=== PATIENT | female | born 1940 | race Caucasian/White ===

== ENCOUNTER 2016-10-21 12:57 | Inpatient (IN) | payer OTHER ==
[~2016-10-21 12:57] MED LIST: cefOXitin SODIUM 1 GM in D5W 50 ML IV ONE
[2016-10-21] MEDS ORDERED: MIDAZOLAM 2 MG/2 ML VIAL ONE (14:13)
[2016-10-21] MEDS ORDERED: LR 1,000 ML IV ONE (14:23)
[2016-10-21] MEDS ORDERED: fentaNYL 100 MCG/2 ML INJ ONE ×3 (14:23→19:09)
[2016-10-21] MEDS ORDERED: LIDOCAINE 1% 5 ML SDV ID PRN (14:23)
[2016-10-21] MEDS ORDERED: PROPOFOL 200 MG/20 ML VIAL ONE ×2 (14:24)
[2016-10-21] MEDS ORDERED: ROCURONIUM 50 MG/5 ML VIAL ONE ×2 (14:27→16:16)
[2016-10-21] MEDS ORDERED: LIDOCAINE 2% 100 MG/5 ML SYR IVP ONE (14:27)
[2016-10-21] MEDS ORDERED: SKIN ADHESIVE (DERMABOND) 1 EACH TP ONE (14:44)
[2016-10-21] MEDS ORDERED: BUPIVACAINE 0.5% 30 ML SDV ONE (14:45)
[2016-10-21] MEDS ORDERED: PHENYLEPHRINE HCL 100 MCG/ML SYR ONE ×2 (16:16)
[2016-10-21] MEDS ORDERED: ONDANSETRON 4 MG/2 ML VIAL ONE (16:21)
[2016-10-21] MEDS ORDERED: DEXAMETHASONE 4 MG/ML VIAL ONE (16:21)
[2016-10-21] MEDS ORDERED: ALBUMIN 5% 250 ML BOTTLE IV ONE (17:24)
[2016-10-21] MEDS ORDERED: THROMBIN (RECOMBINANT) 5,000 UNIT VIAL TP ONE (17:39)
[2016-10-21] MEDS ORDERED: ONDANSETRON 4 MG/2 ML VIAL IVP PRN (19:21)
[2016-10-21] MEDS ORDERED: NALOXONE HCL 0.4 MG/ML INJ IVP PRN (19:21)
[2016-10-21] MEDS ORDERED: ACETAMINOPHEN 325 MG TAB PO PRN (19:21)
[2016-10-21] MEDS ORDERED: HYDROmorphONE/DILAUDID 6 MG/30 ML PCA IV PRN (19:21)
--- NOTE | 2016-10-21 19:27 | POSTOPPROG ---
Post Op Note Date of Operation: 10/21/16 Surgeon: Alysia Ahn Wash Barrel Leader: diana Anesthesiologist: mady Anesthesia: GET(General Endotracheal) Pre-op Diagnosis: sigmoid colon cancer Post-op Diagnosis: same Indication: 76 yo with sigmoid colon cancer Procedure: lap aracelis, lap lar with splenic flexure takedown, loop ileostomy Findings: large tumor adhered to uterus Inf/Abcess present in the surg proc area at time of surgery?: No EBL: 100-500
[2016-10-21] MEDS: ALLOPURINOL 100 MG TAB PO SCH (20:16)
[2016-10-21] MEDS: FUROSEMIDE 20 MG TAB PO SCH (20:16)
[2016-10-21] MEDS: ATORVASTATIN CALCIUM 10 MG TAB PO SCH (20:16)
[2016-10-21] MEDS: NS 1,000 ML IV SCH (21:03)
[2016-10-21] MEDS: cefOXitin SODIUM 1 GM in D5W 50 ML IV SCH (21:03)
[2016-10-22] MEDS: FUROSEMIDE 20 MG TAB PO SCH ×3 (01:28→20:53)
[2016-10-22] MEDS: cefOXitin SODIUM 1 GM in D5W 50 ML IV SCH ×2 (03:24→10:03)
[2016-10-22 05:26] LABS: % IMMATURE GRANULYOCYTES 0.6 % (0.0-1.1); ABSOLUTE IMMATURE GRANULOCYTES 0.07 10^3/uL (0.00-0.10); ADD DIFF? NO; ADD MORPH? YES; ADD SCAN? NO; ATYPICAL LYMPHOCYTE FLAG 0 (0-99); FRAGMENT RBC FLAG 40 (0-99); HEMATOCRIT 27.1 % (38.0-47.0); HEMOGLOBIN 8.3 g/dL (12.6-16.3); LEFT SHIFT FLG 0 (0-99); LIPEMIA HEMOLYSIS FLAG 80 (0-99); MEAN CELL HEMOGLOBIN 25.3 pg (27.9-34.1); MEAN CELL HEMOGLOBIN CONCENTR. 30.6 g/dL (32.4-36.7); MEAN CELL VOLUME 82.6 fL (81.5-99.8); MEAN PLATELET VOLUME 10.2 fL (8.7-11.7); PLATELET CLUMPS FLAG 0 (0-99); PLATELET COUNT 174 10^3/uL (150-400); RED BLOOD CELL COUNT 3.28 10^6/uL (4.18-5.33)
[2016-10-22 05:42] LABS: ANION GAP 8 mEq/L (8-16); CALCIUM 8.5 mg/dL (8.5-10.4); CARBON DIOXIDE 28 mEq/l (22-31); CHLORIDE 99 mEq/L (97-110); CREATININE 2.3 mg/dL (0.6-1.0); GLOMERULAR FILTRATION RATE 21; GLUCOSE 170 mg/dL (70-100); POTASSIUM 4.9 mEq/L (3.5-5.2); RED CELL DISTRIBUTION WIDTH 26.5 % (11.5-15.2); SODIUM 135 mEq/L (134-144)
[2016-10-22 06:57] LABS: PLATELET ESTIMATE ADEQUATE (ADEQ); POLYCHROMASIA 1+
[2016-10-22 06:58] LABS: HYPOCHROMIA 1+
[2016-10-22] MEDS: NS 1,000 ML IV SCH ×2 (07:05→18:48)
[2016-10-22] MEDS ORDERED: ALBUMIN 25% 100 ML IV ONE (07:30)
--- NOTE | 2016-10-22 09:25 | SOAPPROG ---
SOAP Progress Note Assessment/Plan: Assessment: 76yo F POD#1 s/p lap assisted sigmoid colectomy with diverting ostomy for sigmoid colon ca Pain controlled with HAND ASSEMBLER FOR PULLER OVER Ostomy education by WOCN Griffin out tomorrow Advance to clears Albumin - decrease uop. will continue to monitor I/Os (R kidney good kidney). Baseline Cr 1.4 - 2.4 Hospitalist consult for management of comorbidities Encouraged ambulation and IS Cefoxitin x 3 doses post-op PPx: lovenox, scds Seen with Dr. Ahn. Inpatient until pain controlled and full return of bowel function S: No nausea. pain well controlled. no flatus yet O: laying in bed, comfortable, NAD, at bedside supplemental O2 dark green ostomy output incisions CDI +BS tender suprapubic griffin clear yellow urine EDMUND serosanguinous Objective: Vital Signs Temp Pulse Resp BP Pulse Ox 36.4 C 70 15 95/49 L 91 L 10/22/16 08:00 10/22/16 08:00 10/22/16 08:00 10/22/16 08:00 10/22/16 08:00 Laboratory Results 10/22/16 04:56 10/22/16 04:56 10/21/16 10/22/16 10/23/16 05:59 05:59 05:59 Intake Total 1700 Output Total 490 Balance 1210 ICD10 Worksheet Patient Problems: Problems Problem Status Diagnosed Acute kidney failure Acute Anemia Acute CHF (congestive heart failure) Acute CHF (congestive heart failure), NYHA class II Acute Hypertension Acute Hypoxemia Acute Renal insufficiency Acute Shortness of breath Acute
--- NOTE | 2016-10-22 14:40 | GOP ---
[f rep st] OPERATIVE REPORT DATE OF OPERATION: 10/21/2016 SURGEON: Alysia Ahn MD NEON MOLDER: Alexander Navarrete MD who was requested by me for timely completion of the case. ANESTHESIA: General. ANESTHESIOLOGIST: Jacob Tyler MD PREOPERATIVE DIAGNOSIS: 1. Sigmoid colon cancer. 2. Anal polyp. POSTOPERATIVE DIAGNOSIS: 1. Sigmoid colon cancer. 2. Anal polyp. PROCEDURE PERFORMED: Laparoscopic lysis of adhesions, laparoscopic low anterior resection with splenic flexure takedown and diverting loop ileostomy, excision of anal polyp. FINDINGS: Large tumor which was adhered to the uterus. She also had omentum adhesed to the anterior abdominal wall at the splenic flexure. SPECIMENS: Sigmoid colon. ESTIMATED BLOOD LOSS: 500 cc. INDICATIONS: The patient is a 76-year-old woman who was found to have a near circumferential sigmoid colon cancer. Colonoscopy could not be completed above the level of the mass due to the obstructing nature of the mass. She was asymptomatic. DESCRIPTION OF PROCEDURE: The patient was brought into the operating room, placed supine on the table, and general anesthesia was administered. She was then placed in the lithotomy position. Her abdomen and perineum were prepped and draped in the usual sterile fashion. I infiltrated all sites with 0.5% Marcaine prior to making incisions. I made an incision beneath the umbilicus. I elevated it. I inserted the Veress needle. It passed the hanging drop test. Her abdomen insufflated easily to a pressure of 15 mmHg. I placed a 5 mm trocar with a camera at that site. There were no injuries from Veress needle placement. Under direct vision, I placed a 10 mm trocar in the right lower quadrant and a 5 mm trocar in the suprapubic area. I ultimately placed an additional 5 mm trocar in the left lower quadrant. I explored her abdomen. The liver appeared slightly cirrhotic, but no metastases were noted. There was no evidence of carcinomatosis. She had part of her colon adhered to her uterus. I was able to retract the colon and divide the adhesions between the uterus and the omentum. It appeared that the left salpinx was also involved and so I took a DORA blue 65 load and divided the ligament. I continued to mobilize the sigmoid colon from the uterus. Once I was able to straighten this , there was a very large tumor in this area. I could see a small amount of inking. I continued my dissection down along the lateral stalk and posteriorly in order to obtain adequate lymph nodes. I used the Harmonic to divide the tissue. I mobilized along the white line of Toldt and continued up to the splenic flexure. I selected a point of transition distally low on the rectum. I divided this with an Endo-DORA 65 blue load. I then divided the mesentery. She had an atrophic left kidney and I did not identify the ureter. I created a Pfannenstiel incision. I placed an Blu wound protector and I extracorporealized the segment of bowel. I selected a point of transection. I divided this sharply. There was bleeding along the colonic edges. I placed a 29 EEA anvil into the lumen. I sutured 2-0 Prolene to perform a pursestring suture. I placed the anvil back into the abdomen. I encircled the Blu wound protector with a Baldwin drain. I re-insufflated the abdomen. A digital rectal exam was performed. There was a polyp in her anus. An EEA dilator was placed up into the rectum. It appeared that the anvil would reach, but there would be slight tension. I re-insufflated the abdomen and I continued my mobilization along the splenic flexure. There was omentum adhesed to the anterior abdominal wall. Once this was mobilized, the colon was then able to reach more freely and loosely into the pelvis. The EEA stapler was placed up the anus and the spike was deployed. It was connected to the anvil and the stapler was fired. Irrigation was placed in the pelvis and air insufflation test was performed. There were initially a few dots of air, which resolved. However, due to the possibility of there being a small leak and this being a low pelvic anastomosis, I then elected to proceed with diverting loop ileostomy. I placed a 15 round silicone drain through the port in the left lower quadrant and sutured it into place with 3-0 nylon. I selected a piece of bowel on the terminal ilium. I selected an area on her abdomen where the diverting loop ileostomy would be placed. I created an ellipse of skin. I dissected down through the fascia. I the rectus and divided the periosteum. I then pulled the terminal ilium up to the surface of the bowel. I closed the fascia at the 10 mm trocar site with 0 Vicryl. I closed the fascia at the Pfannenstiel incision with 0 PDS. The Pfannenstiel was then closed with 0 Vicryl followed by 4 Monocryl. The other incisions were closed with 4-0 Monocryl. Dermabond applied. I then made an enterotomy in the ileostomy to mature this. This was brought up to the fascia in 2 separate areas with 3-0 Vicryl. I matured the ostomy. An appliance placed. Finally, I grasped the polyp that was extending from the right lateral pile in her anus and excised it., hemostasis was achieved. The defect was closed wtih 3-0 Vicryl. She was taken out of the lithotomy position, awakened in the operating room, extubated, transferred to PACU in stable condition. /[id number]/MODL MTDD
[2016-10-22] MEDS ORDERED: SODIUM FERRIC GLUCONAT/SUCROSE 125 MG in NS 100 ML IV SCH (16:00)
--- NOTE | 2016-10-22 17:41 | GCON ---
[f rep st] CONSULTATION INTERNAL MEDICINE CONSULTATION DATE OF CONSULTATION: 10/22/2016 REASON FOR CONSULTATION: Status post colectomy and multiple medical problems. HISTORY OF PRESENT ILLNESS: This is a 76-year-old female who was actually admitted in August with fluid overload and was found to have severe pulmonary hypertension. At that time, she w as found to have iron-deficiency anemia, and a colonoscopy was done shortly after she was discharged, which showed a large obstructing mass in sigmoid colon. She underwent colectomy and loop ileostomy yesterday. Today, she is doing well. She has no complaints. Pain is well controlled, although she did have some when she walked. She does not usually have any lower extremity edema. At home, she is on 2 L oxygen. REVIEW OF SYSTEMS: A 10-point review of systems was obtained and was negative. PAST MEDICAL HISTORY: 1. Severe pulmonary hypertension. Uncertain cause, but suspect obstructive sleep apnea. 2. Diastolic dysfunction. 3. Iron-deficiency anemia. 4. Chronic kidney disease with baseline creatinine about 1.6. 5. Chronic urinary tract infection. 6. Gout. 7. 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 8. Hyperlipidemia. SOCIAL HISTORY: Nonsmoker. Was drinking 1 or 2 drinks per week. Is . FAMILY HISTORY: No history of colon cancer. PHYSICAL EXAMINATION: VITAL SIGNS: Afebrile. Blood pressure is 107/56, heart rate is 71, oxygen sa turation 96% on 1 L. GENERAL: Patient is well-developed, no apparent distress. HEENT: Nonicteric sclerae. Extraocular movements intact. Moist mucous membranes. NECK: Supple. No thyromegaly. CRISTOPHER NGS: Good effort. Clear to auscultation bilaterally. CARDIOVASCULAR: Regular rate and rhythm. No murmurs or gallops. ABDOMEN: Decreased bowel sounds. Soft. There is ileostomy in place on the ri ght with no gas. EXTREMITIES: No clubbing, cyanosis or edema. SKIN: Without rash. Warm, dry, int act. NEUROLOGIC: Alert and oriented x3. Moving all 4 extremities equally. PSYCH: Normal mood and affect. LABS: White count 11, hemoglobin 8.3, MCV is 82, platelet count 134. ASSESSMENT: This is a 76-year-old female with a history of colon cancer, status post colectomy. PLAN: 1. Status post colectomy: Admitted per Surgery. 2. Acute on chronic renal failure: I am unsure if this is from hypovolemia versus congestive heart failure and fluid overload. She does not seem clinically fluid overloaded and is lying flat and with out any peripheral edema. She may be a little bit on the dry side. At this point, I am hesitant to give her any more fluids. She is already on 100 an hour. I would continue to monitor this and see w panfilo way she goes. 3. Iron-deficiency anemia: Patient states she has not had any IV iron. We will give her a few dose s here in the hospital. 4. Severe pulmonary hypertension: Patient is on minimal oxygen, does not seem fluid overloaded at t his time. 5. Chronic urinary tract infection: Patient has been taken off her Augmentin, switched over to Leva sara. by Surgery. I believe because of spillage, so we can clarify what fluid is from sp illage from the OR, and we can clarify with Surgery tomorrow. /[id number]/MODL
[2016-10-22] MEDS: ATORVASTATIN CALCIUM 10 MG TAB PO SCH (20:53)
[2016-10-22] MEDS: ALLOPURINOL 100 MG TAB PO SCH (20:53)
[2016-10-23] MEDS: NS 1,000 ML IV SCH ×2 (04:24→16:54)
[2016-10-23 05:42] LABS: MEAN CELL HEMOGLOBIN 25.3 pg (27.9-34.1); MEAN CELL HEMOGLOBIN CONCENTR. 29.6 g/dL (32.4-36.7); MEAN CELL VOLUME 85.5 fL (81.5-99.8); RED BLOOD CELL COUNT 2.69 10^6/uL (4.18-5.33)
[2016-10-23 05:49] LABS: HEMOGLOBIN 6.8 g/dL (12.6-16.3); RED CELL DISTRIBUTION WIDTH 27.4 % (11.5-15.2)
[2016-10-23 05:51] LABS: ANION GAP 8 mEq/L (8-16); CARBON DIOXIDE 26 mEq/l (22-31); CHLORIDE 103 mEq/L (97-110); CREATININE 2.3 mg/dL (0.6-1.0); GLOMERULAR FILTRATION RATE 21; GLUCOSE 117 mg/dL (70-100); SODIUM 137 mEq/L (134-144)
[2016-10-23] MEDS: FUROSEMIDE 20 MG TAB PO SCH (08:56)
--- NOTE | 2016-10-23 09:47 | SOAPPROG ---
SOAP Progress Note Assessment/Plan: Assessment/Plan - 76yo female POD#2 s/p lap LAR c loop ileostomy - VSS, HDS, pressures have rebounded - Pain controlled with SECRETARY BOOKKEEPER - Abdomen is soft, Incisions are clean. Stoma with bilious output and pink appearing - Hb <7, transfusing today. EDMUND serosang, output slowing to 60/24hrs. - Cr stable at 2.3, UOP has been adequate - Levaquin 750 QOD for comp UTI for 5 addl days. Keep griffin one addl day, will remove tomorrow - Heparin SQ once H&H stabilizes - OOBTC, Ambulate. - Appreciate IM assistance with MMP 10/23/16 09:44 10/23/16 09:45 10/23/16 09:47 Subjective: Doing well, some lightheadedness with activity this AM Objective: Vital Signs Temp Pulse Resp BP Pulse Ox 36.6 C 83 18 124/56 H 97 10/23/16 07:50 10/23/16 07:50 10/23/16 07:50 10/23/16 07:50 10/23/16 07:50 Laboratory Results 10/23/16 04:38 10/23/16 04:38 10/22/16 10/23/16 10/24/16 05:59 05:59 05:59 Intake Total 1700 2071 100 Output Total 905 558 4041 Balance 1210 1716 -1060 ICD10 Worksheet Patient Problems: Problems Problem Status Diagnosed Acute kidney failure Acute Anemia Acute CHF (congestive heart failure) Acute CHF (congestive heart failure), NYHA class II Acute Hypertension Acute Hypoxemia Acute Renal insufficiency Acute Shortness of breath Acute
[2016-10-23] MEDS: HEPARIN 5,000 UNIT/0.5 ML SYR SC SCH ×2 (10:41→20:04)
[2016-10-23 11:38] LABS: COLOR PALE YELLOW; LEUKOCYTE ESTERASE,URINE NEGATIVE (NEGATIVE); NITRITE,URINE NEGATIVE (NEGATIVE)
[2016-10-23 11:43] LABS: BACTERIA TRACE /hpf (NONE SEEN); MUCUS TRACE /lpf (NONE-1+)
[2016-10-23] MEDS: HYDROmorphONE/DILAUDID 2 MG TAB PO PRN ×2 (12:45→16:48)
--- NOTE | 2016-10-23 17:31 | HOSPPROG ---
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 Chronic diastolic congestive heart failure. No evidence of acute exacerbation, patient does not appear grossly overloaded on physical exam -holding her Lasix given her acute kidney injury -holding her atenolol given her acute kidney injury -continue to monitor strict I&Os as well as daily weights 2. Atelectasis. Suspected, anticipated postop, continue to encourage use of incentive spirometer at bedside 3. Acute blood loss anemia. Anticipated postoperatively, evidenced by serum hemoglobin level of 6.8 with history of iron deficient anemia in the setting of sigmoid colon cancer -receiving 1 unit PRBC today -repeat serum hemoglobin level tomorrow -continue to monitor for any signs of blood loss through stoma or rectum 4. Acute kidney injury on chronic kidney disease stage III. Acute, new problem this provider, further workup indicated. Most likely secondary to hypovolemia as there is no evidence of acute CHF -get urinalysis, get fractional excretion of urea to better ascertain whether this is an intrinsic or extrinsic renal process -continue to monitor urine output -as mentioned above, hold diuretics and beta-idania -continue IV normal saline at 100 cc an hour and repeat serum creatinine level tomorrow a.m. 5. Chronic urinary tract infection. Adjusted from Augmentin to levofloxacin given her recent surgery, continue per surgery 6. Severe pulmonary hypertension. Continue to monitor for any signs of acute cor pulmonale 7. Sigmoid colon cancer. Postop day 1 status post lower anterior resection of sigmoid colon with diverting ileostomy -currently requiring PROSTHODONTIST for pain management, recommended that the patient now begin taking oral Dilaudid since she is on a clear liquid diet and this may help her wean herself from her PROSTHODONTIST The Hospital Medicine service will continue to consult in this patient's care. Subjective: Patient reports that her pain is significant with movement Objective: Vital Signs Temp Pulse Resp BP Pulse Ox 36.5 C 78 20 130/64 H 97 10/23/16 16:00 10/23/16 16:00 10/23/16 16:00 10/23/16 16:00 10/23/16 16:00 Laboratory Results 10/23/16 04:38 10/23/16 04:38 10/22/16 10/23/16 10/24/16 05:59 05:59 05:59 Intake Total 16990 Output Total 460 761 6064 Balance 1210 1716 -548 - Time Spent With Patient Time Spent with Patient: greater than 35 minutes Time Spent with Patient: Greater than 35 minutes spent on this patients care, greater than 50% of time spent counseling, educating, and coordinating care regarding the above mentioned plan. - Physical Exam Constitutional: uncomfortable, No not in pain Cardiovascular: regular rate and rhythym, no murmur, rub, or gallop, No irregularly irregular, No tachycardia, No edema Respiratory: inspiratory crackles, No reduced air movement, No expiratory wheeze , No bronchial breath sounds Gastrointestinal: soft, non-tender abdomen, no palpable masses, other (Ostomy bag in place), No normoactive bowel sounds (Hyperactive bowel sounds) Skin: no rashes or abrasions, no fluctuance, no induration, No erythema Neurologic: AAOx3, sensation intact bilaterally Psychiatric: interacting appropriately, not anxious, not encephalopathic, thought process linear ICD10 Worksheet Patient Problems: Problems Problem Status Diagnosed Acute kidney failure Acute Anemia Acute CHF (congestive heart failure) Acute CHF (congestive heart failure), NYHA class II Acute Hypertension Acute Hypoxemia Acute Renal insufficiency Acute Shortness of breath Acute
[2016-10-23] MEDS: ALLOPURINOL 100 MG TAB PO SCH (20:03)
[2016-10-23] MEDS: ATORVASTATIN CALCIUM 10 MG TAB PO SCH (20:04)
[2016-10-24] MEDS: NS 1,000 ML IV SCH (02:23)
[2016-10-24 05:42] LABS: % IMMATURE GRANULYOCYTES 0.5 % (0.0-1.1); ABSOLUTE IMMATURE GRANULOCYTES 0.04 10^3/uL (0.00-0.10); ADD DIFF? NO; ADD MORPH? YES; ADD SCAN? NO; ATYPICAL LYMPHOCYTE FLAG 0 (0-99); FRAGMENT RBC FLAG 40 (0-99); HEMOGLOBIN 7.8 g/dL (12.6-16.3); LEFT SHIFT FLG 0 (0-99); LIPEMIA HEMOLYSIS FLAG 80 (0-99); MEAN CELL HEMOGLOBIN 26.4 pg (27.9-34.1); MEAN CELL VOLUME 88.1 fL (81.5-99.8); PLATELET CLUMPS FLAG 0 (0-99); PLATELET COUNT 145 10^3/uL (150-400); RED BLOOD CELL COUNT 2.95 10^6/uL (4.18-5.33)
[2016-10-24 06:11] LABS: ANION GAP 6 mEq/L (8-16); CALCIUM 7.5 mg/dL (8.5-10.4); CARBON DIOXIDE 26 mEq/l (22-31); CHLORIDE 103 mEq/L (97-110); CREATININE 2.1 mg/dL (0.6-1.0); GLOMERULAR FILTRATION RATE 23; GLUCOSE 110 mg/dL (70-100); POTASSIUM 3.9 mEq/L (3.5-5.2); SODIUM 135 mEq/L (134-144)
[2016-10-24] MEDS: HYDROmorphONE/DILAUDID 2 MG TAB PO PRN ×5 (06:41→23:12)
[2016-10-24 07:13] LABS: PLATELET ESTIMATE ADEQUATE (ADEQ)
[2016-10-24 07:14] LABS: HYPOCHROMIA 2+; POLYCHROMASIA 1+
[2016-10-24 07:15] LABS: MICROCYTES 1+
[2016-10-24] MEDS: HEPARIN 5,000 UNIT/0.5 ML SYR SC SCH ×2 (08:29→20:10)
--- NOTE | 2016-10-24 14:06 | SOAPPROG ---
SOAP Progress Note Assessment/Plan: Assessment/Plan - 76yo female POD#3 s/p lap LAR c loop ileostomy - Hb responded appropriately to transfusion - tachy this AM, ? restart BB - UOP has increased, diuresing appropriately. CR improving. D/c griffin today - OOBTC, ambulate - Ostomy working, will advance diet. PO pain medications - EDMUND serosang, will keep through today - Path pending 10/23/16 09:44 10/23/16 09:45 10/23/16 09:47 10/24/16 14:05 Subjective: Had pain yesterday, eager to get OOB Objective: Vital Signs Temp Pulse Resp BP Pulse Ox 36.7 C 93 18 105/71 97 10/24/16 12:00 10/24/16 12:00 10/24/16 12:00 10/24/16 12:00 10/24/16 12:00 Laboratory Results 10/24/16 04:50 10/24/16 04:50 10/23/16 10/24/16 10/25/16 05:59 05:59 05:59 Intake Total 2071 2300 200 Output Total 355 3565 50 Balance 1716 -1265 150 ICD10 Worksheet Patient Problems: Problems Problem Status Diagnosed Acute kidney failure Acute Anemia Acute CHF (congestive heart failure) Acute CHF (congestive heart failure), NYHA class II Acute Hypertension Acute Hypoxemia Acute Renal insufficiency Acute Shortness of breath Acute
--- NOTE | 2016-10-24 14:39 | HOSPPROG ---
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 Chronic diastolic congestive heart failure. No evidence of acute exacerbation, patient does not appear grossly overloaded on physical exam -holding her Lasix given her acute kidney injury -will reintroduce bblocker given tachycardia, but use metoprolol tartrate given GIOVANY, 12.5mg 2xd -continue to monitor strict I&Os as well as daily weights 2. Atelectasis. Suspected, anticipated postop, continue to encourage use of incentive spirometer at bedside 3. Acute blood loss anemia. Anticipated postoperatively, evidenced by serum hemoglobin level of 6.8 with history of iron deficient anemia in the setting of sigmoid colon cancer -received 1 unit PRBC, repeat Hgb 7.8 -repeat serum hemoglobin level tomorrow -continue to monitor for any signs of blood loss through stoma or rectum -no indication for transfusion today 4. Acute kidney injury on chronic kidney disease stage III. Acute, most likely secondary to hypovolemia as there is no evidence of acute CHF -FeUr 25%, indicating hypovolemia, UA w/ RBCs but no casts -UOP 3500 o/n, stop IVF -as mentioned above, hold diuretics -d/w Dr. Navarrete, agree we allow to re-equilibrate over next 24hrs w/ improved PO intake 5. Chronic urinary tract infection. Adjusted from Augmentin to levofloxacin given her recent surgery, continue per surgery 6. Severe pulmonary hypertension. Continue to monitor for any signs of acute cor pulmonale 7. Sigmoid colon cancer. Postop day 2 status post lower anterior resection of sigmoid colon with diverting ileostomy -cont on PO dilaudid and HARNESS BRUSHER The Hospital Medicine service will continue to consult in this patient's care. Subjective: Reports that her pain has been better managed with the introduction of oral Dilaudid Objective: Vital Signs Temp Pulse Resp BP Pulse Ox 36.7 C 93 18 105/71 97 10/24/16 12:00 10/24/16 12:00 10/24/16 12:00 10/24/16 12:00 10/24/16 12:00 Laboratory Results 10/24/16 04:50 10/24/16 04:50 10/23/16 10/24/16 10/25/16 05:59 05:59 05:59 Intake Total 2070 2300 200 Output Total 355 4705 50 Balance 1716 -1265 150 - Physical Exam Constitutional: no apparent distress, not in pain, obese, No uncomfortable Cardiovascular: systolic murmur (2/6 at the sternum), No irregularly irregular, No tachycardia, No edema Respiratory: inspiratory crackles, No reduced air movement, No expiratory wheeze , No bronchial breath sounds Gastrointestinal: normoactive bowel sounds, other (Ostomy in place), No tenderness, No guarding Skin: no rashes or abrasions, no fluctuance, no induration, No erythema Neurologic: AAOx3, sensation intact bilaterally Psychiatric: interacting appropriately, not anxious, not encephalopathic, thought process linear ICD10 Worksheet Patient Problems: Problems Problem Status Diagnosed Acute kidney failure Acute Anemia Acute CHF (congestive heart failure) Acute CHF (congestive heart failure), NYHA class II Acute Hypertension Acute Hypoxemia Acute Renal insufficiency Acute Shortness of breath Acute
[2016-10-24] MEDS: METOPROLOL TARTRATE 25 MG TAB PO SCH ×2 (15:49→20:13)
[2016-10-24] MEDS: ATORVASTATIN CALCIUM 10 MG TAB PO SCH (20:09)
[2016-10-24] MEDS: ALLOPURINOL 100 MG TAB PO SCH (20:09)
[2016-10-25 05:25] LABS: % IMMATURE GRANULYOCYTES 0.9 % (0.0-1.1); ABSOLUTE IMMATURE GRANULOCYTES 0.07 10^3/uL (0.00-0.10); ADD DIFF? NO; ADD MORPH? YES; ADD SCAN? NO; ATYPICAL LYMPHOCYTE FLAG 0 (0-99); FRAGMENT RBC FLAG 40 (0-99); HEMATOCRIT 25.2 % (38.0-47.0); HEMOGLOBIN 7.8 g/dL (12.6-16.3); LEFT SHIFT FLG 0 (0-99); LIPEMIA HEMOLYSIS FLAG 80 (0-99); MEAN CELL HEMOGLOBIN 27.1 pg (27.9-34.1); MEAN CELL VOLUME 87.5 fL (81.5-99.8); MEAN PLATELET VOLUME 10.6 fL (8.7-11.7); PLATELET CLUMPS FLAG 0 (0-99); PLATELET COUNT 174 10^3/uL (150-400); RED BLOOD CELL COUNT 2.88 10^6/uL (4.18-5.33)
[2016-10-25 05:34] LABS: RED CELL DISTRIBUTION WIDTH 26.2 % (11.5-15.2)
[2016-10-25 05:47] LABS: ANION GAP 6 mEq/L (8-16); CARBON DIOXIDE 25 mEq/l (22-31); CHLORIDE 103 mEq/L (97-110); CREATININE 1.9 mg/dL (0.6-1.0); GLOMERULAR FILTRATION RATE 26; GLUCOSE 114 mg/dL (70-100); POTASSIUM 3.8 mEq/L (3.5-5.2); SODIUM 134 mEq/L (134-144)
[2016-10-25 06:33] LABS: HYPOCHROMIA 2+
[2016-10-25 06:34] LABS: GIANT PLATELETS PRESENT; MICROCYTES 1+; PLATELET ESTIMATE ADEQUATE (ADEQ)
[2016-10-25] MEDS: HYDROmorphONE/DILAUDID 2 MG TAB PO PRN ×4 (08:19→22:35)
[2016-10-25] MEDS: METOPROLOL TARTRATE 25 MG TAB PO SCH ×2 (08:20→20:59)
[2016-10-25] MEDS: HEPARIN 5,000 UNIT/0.5 ML SYR SC SCH ×2 (08:22→20:59)
--- NOTE | 2016-10-25 09:39 | SOAPPROG ---
SOAP Progress Note Assessment/Plan: Assessment: 76yo F POD#4 s/p lap assisted sigmoid colectomy with diverting ostomy for sigmoid colon ca Pain controlled with POD dilaudid Acute blood loss anemia s/p transfusion 10/23, stable Continue ostomy care and education Voiding spontaneously after griffin removal. Cr improving, baseline Cr 1.4 - 2.4 Advance diet to regular Appreciate Hospitalist management of comorbidities Encouraged ambulation and IS. Goal to walk 3x in hallways today PPx: lovenox, scds S: Tolerating diet without nausea or distension. Stool and gas per ostomy. Pain at ostomy site improving, controlled with PO dilaudid O: laying in bed, comfortable, NAD No increased WOB brown stool in appliance incisions CDI +BS Abdomen mildly distended, nontender to palpation EDMUND serosanguineous Objective: Vital Signs Temp Pulse Resp BP Pulse Ox 36.4 C 91 20 139/67 H 96 10/25/16 08:00 10/25/16 08:20 10/25/16 08:00 10/25/16 08:20 10/25/16 08:00 Laboratory Results 10/25/16 04:35 10/25/16 04:35 10/24/16 10/25/16 10/26/16 05:59 05:59 05:59 Intake Total 2300 1500 Output Total 3565 1455 250 Balance -1265 45 -250 ICD10 Worksheet Patient Problems: Problems Problem Status Diagnosed Acute kidney failure Acute Anemia Acute CHF (congestive heart failure) Acute CHF (congestive heart failure), NYHA class II Acute Hypertension Acute Hypoxemia Acute Renal insufficiency Acute Shortness of breath Acute
--- NOTE | 2016-10-25 14:26 | HOSPPROG ---
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 Chronic diastolic congestive heart failure. No evidence of acute exacerbation, patient does not appear grossly overloaded on physical exam -cont holding her Lasix given her acute kidney injury, likely restart tomorrow -cont metoprolol tartrate given GIOVANY, 12.5mg 2xd -continue to monitor strict I&Os as well as daily weights 2. Atelectasis. Suspected, anticipated postop, continue to encourage use of incentive spirometer at bedside 3. Acute blood loss anemia. Anticipated postoperatively, evidenced by serum hemoglobin level of 6.8 with history of iron deficient anemia in the setting of sigmoid colon cancer -received 1 unit PRBC, repeat Hgb 7.8 -repeat serum hemoglobin level tomorrow -continue to monitor for any signs of blood loss through stoma or rectum -no indication for transfusion today 4. Acute kidney injury on chronic kidney disease stage III. Acute, most likely secondary to hypovolemia as there is no evidence of acute CHF -FeUr 25%, indicating hypovolemia, UA w/ RBCs but no casts -UOP 3500 o/n, off IVF -as mentioned above, hold diuretics 5. Chronic urinary tract infection. Adjusted from Augmentin to levofloxacin given her recent surgery -recommend discontinuing Levofloxacin and resuming home Rx, when deemed appropriate by gen surg 6. Severe pulmonary hypertension. Continue to monitor for any signs of acute cor pulmonale 7. Sigmoid colon cancer. Postop day 2 status post lower anterior resection of sigmoid colon with diverting ileostomy -cont on PO dilaudid The Hospital Medicine service will continue to consult in this patient's care. Subjective: Patient reports the pain control has significantly improved Objective: Vital Signs Temp Pulse Resp BP Pulse Ox 36.4 C 91 20 139/67 H 96 10/25/16 08:00 10/25/16 08:20 10/25/16 08:00 10/25/16 08:20 10/25/16 08:00 Laboratory Results 10/25/16 04:35 10/25/16 04:35 10/24/16 10/25/16 10/26/16 05:59 05:59 05:59 Intake Total 2300 1500 500 Output Total 3565 1455 533 Balance -1265 45 -33 - Physical Exam Constitutional: no apparent distress, not in pain, obese, No uncomfortable Cardiovascular: regular rate and rhythym, no murmur, rub, or gallop, No irregularly irregular, No tachycardia, No edema Respiratory: reduced air movement (Bilateral bases), No expiratory wheeze, No inspiratory crackles, No bronchial breath sounds Gastrointestinal: normoactive bowel sounds, no palpable masses, tenderness ( Mild with moderate palpation around the surgical site), other (Ostomy bag in place), No guarding Neurologic: AAOx3 Psychiatric: interacting appropriately, not anxious, not encephalopathic, thought process linear ICD10 Worksheet Patient Problems: Problems Problem Status Diagnosed Acute kidney failure Acute Anemia Acute CHF (congestive heart failure) Acute CHF (congestive heart failure), NYHA class II Acute Hypertension Acute Hypoxemia Acute Renal insufficiency Acute Shortness of breath Acute
[2016-10-25] MEDS: ALLOPURINOL 100 MG TAB PO SCH (20:58)
[2016-10-25] MEDS: ATORVASTATIN CALCIUM 10 MG TAB PO SCH (20:59)
[2016-10-26 05:26] LABS: % IMMATURE GRANULYOCYTES 1.2 % (0.0-1.1); ABSOLUTE IMMATURE GRANULOCYTES 0.09 10^3/uL (0.00-0.10); ADD DIFF? NO; ADD MORPH? YES; ADD SCAN? NO; ATYPICAL LYMPHOCYTE FLAG 0 (0-99); FRAGMENT RBC FLAG 40 (0-99); HEMATOCRIT 25.5 % (38.0-47.0); LEFT SHIFT FLG 10 (0-99); LIPEMIA HEMOLYSIS FLAG 80 (0-99); MEAN CELL HEMOGLOBIN 27.6 pg (27.9-34.1); MEAN CELL HEMOGLOBIN CONCENTR. 31.4 g/dL (32.4-36.7); MEAN CELL VOLUME 87.9 fL (81.5-99.8); MEAN PLATELET VOLUME 9.7 fL (8.7-11.7); PLATELET CLUMPS FLAG 0 (0-99); PLATELET COUNT 206 10^3/uL (150-400)
[2016-10-26 05:39] LABS: RED CELL DISTRIBUTION WIDTH 26.4 % (11.5-15.2)
[2016-10-26 05:52] LABS: ANION GAP 7 mEq/L (8-16); CARBON DIOXIDE 25 mEq/l (22-31); CHLORIDE 103 mEq/L (97-110); CREATININE 1.7 mg/dL (0.6-1.0); GLOMERULAR FILTRATION RATE 29; GLUCOSE 117 mg/dL (70-100); POTASSIUM 4.1 mEq/L (3.5-5.2); SODIUM 135 mEq/L (134-144)
[2016-10-26] MEDS: HYDROmorphONE/DILAUDID 2 MG TAB PO PRN ×4 (06:37→23:05)
[2016-10-26 06:42] LABS: HYPOCHROMIA 1+; LARGE PLATELETS PRESENT; MICROCYTES 2+; PLATELET ESTIMATE ADEQUATE (ADEQ); POLYCHROMASIA 1+
--- NOTE | 2016-10-26 09:01 | SOAPPROG ---
SOAP Progress Note Assessment/Plan: Assessment: 76yo F POD#5 s/p lap assisted sigmoid colectomy with diverting ostomy for sigmoid colon ca Path shows T2N0 tumor. Will f/u with oncology as outpatient Pain controlled with PO dilaudid Ostomy education by WOCN Voiding spontaneously Tolerating regular diet GIOVANY - Cr improving Encouraged ambulation and IS, PT Drain out prior to discharge PPx: sc heparin, scds Appreciate hospitalist management of comorbidities Seen with Dr. Ahn. Likely home tomorrow S: feeling well. ate scrambled eggs, toast and baked potato yesterday without issue. walked 2x in the halls yesterday O: laying in bed, comfortable, NAD supplemental O2, no increased WOB incisions CDI. +BS. soft, nontender, nd. EDMUND serosanguinous. ileostomy with thin brown stool in appliance 10/26/16 09:15 10/26/16 09:17 10/26/16 09:17 Objective: Vital Signs Temp Pulse Resp BP Pulse Ox 36.7 C 76 18 123/61 H 94 10/26/16 08:00 10/26/16 08:00 10/26/16 08:00 10/26/16 08:00 10/26/16 08:00 Laboratory Results 10/26/16 04:33 10/26/16 04:33 10/25/16 10/26/16 10/27/16 05:59 05:59 05:59 Intake Total 1500 950 Output Total 1455 1550 200 Balance 45 -600 -200 ICD10 Worksheet Patient Problems: Problems Problem Status Diagnosed Acute kidney failure Acute Anemia Acute CHF (congestive heart failure) Acute CHF (congestive heart failure), NYHA class II Acute Hypertension Acute Hypoxemia Acute Renal insufficiency Acute Shortness of breath Acute
[2016-10-26] MEDS: HEPARIN 5,000 UNIT/0.5 ML SYR SC SCH ×2 (09:25→20:07)
[2016-10-26] MEDS: FUROSEMIDE 20 MG TAB PO SCH ×2 (09:25→14:21)
[2016-10-26] MEDS: METOPROLOL TARTRATE 25 MG TAB PO SCH ×2 (09:26→20:07)
--- NOTE | 2016-10-26 12:19 | WOCRNPDOC ---
WOCRN Advanced Assessment Note - Ileostomy Assessment, Advanced Right Ileostomy Ileostomy Appliance Intact: Yes Ileostomy Appliance Currently in Use: Two Piece Flat, 2 1/4, Moldable Stoma Color: Red Stoma Turgor: Moist Stoma Shape: Round Stoma Height: Protruding Mucocutaneus Junction: Intact Ileostomy Effluent: Fecal, Thin Ileostomy Size - Head-to-Toe Length X Width X Depth (cm): 1.9cm(H) x2.3cm(W) Peristomal Skin: Intact Ileostomy Comment/Treatment Details: Moist, red stoma w/ moderate profile, red rubber catheter in place. Peristomal skin is presently intact w/ no breakdown noted. Pouch was 1/4 full w/ thin, fecal effluent. There is a slight trough inferior to the stoma, so I applied a 2" barrier ring around the stoma to improve the seal. I spent and hour with the patient, performing an appliance change and answering her questions. She is very knowledgeable about her surgery , and demonstrates a very positive atttitude. She will need teaching and reinforcement ongoing. I have written ostomy care instructions in discharge planning, as well as a note about her home care needs in these next few weeks. I also faxed a supply order to [facility] today, which includes the basic supplies she will need to perform these changes at home with a director of operations home health.
--- NOTE | 2016-10-26 14:37 | HOSPPROG ---
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 Chronic diastolic congestive heart failure. No evidence of acute exacerbation, patient does not appear grossly overloaded on physical exam -reinitiated lasix at home dosing -cont metoprolol tartrate given GIOVANY, 12.5mg 2xd (recommend that atenolol permanently be discontinued, metop tartrate has been electronically sent to her pharmacy, [facility] per her request) -continue to monitor strict I&Os as well as daily weights 2. Atelectasis. Suspected, anticipated postop, continue to encourage use of incentive spirometer at bedside -will require continuous o2 at home temporarily while she recovers from surg 3. Acute blood loss anemia. Anticipated postoperatively, evidenced by serum hemoglobin level of 6.8 with history of iron deficient anemia in the setting of sigmoid colon cancer -received 1 unit PRBC -repeat serum hemoglobin level 8 -continue to monitor for any signs of blood loss through stoma or rectum -no indication for transfusion today 4. Acute kidney injury on chronic kidney disease stage III. Acute, most likely secondary to hypovolemia as there is no evidence of acute CHF -FeUr 25%, indicating hypovolemia, UA w/ RBCs but no casts -UOP 3500 o/n, off IVF -restarted on lasix today 5. Chronic urinary tract infection. Adjusted from Augmentin to levofloxacin given her recent surgery -recommend discontinuing Levofloxacin and resuming home Rx, when deemed appropriate by gen surg 6. Severe pulmonary hypertension. Continue to monitor for any signs of acute cor pulmonale 7. Sigmoid colon cancer. Postop day 2 status post lower anterior resection of sigmoid colon with diverting ileostomy -cont on PO dilaudid The Hospital Medicine service will continue to consult in this patient's care. Discharge home planned for 10/27 if she continues to clinically improve, d/w Dr. Ahn. Subjective: Patient reports she is tolerating an oral diet Objective: Vital Signs Temp Pulse Resp BP Pulse Ox 36.7 C 76 18 123/61 H 95 10/26/16 08:00 10/26/16 09:26 10/26/16 08:00 10/26/16 09:26 10/26/16 11:05 Laboratory Results 10/26/16 04:33 10/26/16 04:33 10/25/16 10/26/16 10/27/16 05:59 05:59 05:59 Intake Total 1500 950 Output Total 1455 1550 200 Balance 45 -600 -200 - Pending Discharge Pending Discharge Within 24 Hours: Yes Pending Discharge Date: 10/27/16 Pending Discharge Time: 11:00 - Physical Exam Constitutional: no apparent distress, appears nourished, not in pain, obese Cardiovascular: regular rate and rhythym, no murmur, rub, or gallop, No irregularly irregular, No tachycardia, No edema Respiratory: no respiratory distress, no rales or rhonchi, inspiratory crackles (Bilateral bases), No reduced air movement Gastrointestinal: normoactive bowel sounds, soft, non-tender abdomen, no palpable masses Neurologic: AAOx3, sensation intact bilaterally Psychiatric: interacting appropriately, not anxious, not encephalopathic, thought process linear ICD10 Worksheet Patient Problems: Problems Problem Status Diagnosed Acute kidney failure Acute Anemia Acute CHF (congestive heart failure) Acute CHF (congestive heart failure), NYHA class II Acute Hypertension Acute Hypoxemia Acute Renal insufficiency Acute Shortness of breath Acute
[2016-10-26] MEDS ORDERED: NS 500 ML IV ONE (16:36)
[2016-10-26] MEDS ORDERED: METOPROLOL TARTRATE 5 MG/5 ML INJ ONE (16:46)
--- NOTE | 2016-10-26 16:50 | CPEKG ---
Heart Rate: 156 RR Interval: 385 QRSD Interval: 86 QT Interval: 296 QTC Interval: 477 P [place]: 0 QRS [place]: 21 T Wave [place]: 154 EKG Severity - ABNORMAL ECG - EKG Impression: SUPRAVENTRICULAR TACHYCARDIA EKG Impression: CONSIDER POSTERIOR INFARCT EKG Impression: REPOLARIZATION ABNORMALITY, PROB RATE RELATED Electronically Signed By: Sera Guadarrama 27-Oct-2016 09:53:42
[2016-10-26] MEDS ORDERED: METOPROLOL TARTRATE 25 MG TAB PO ONE (16:51)
[2016-10-26] MEDS ORDERED: METOPROLOL TARTRATE 5 MG/5 ML INJ IVP ONE (16:52)
[2016-10-26 17:35] LABS: RANDOM URINE PROTEIN 12 mg/dL
[2016-10-26] MEDS: ALLOPURINOL 100 MG TAB PO SCH (20:07)
[2016-10-26] MEDS: ATORVASTATIN CALCIUM 10 MG TAB PO SCH (20:07)
[2016-10-27 04:54] LABS: % IMMATURE GRANULYOCYTES 2.2 % (0.0-1.1); ABSOLUTE IMMATURE GRANULOCYTES 0.14 10^3/uL (0.00-0.10); ADD DIFF? NO; ADD MORPH? YES; ADD SCAN? NO; ATYPICAL LYMPHOCYTE FLAG 10 (0-99); FRAGMENT RBC FLAG 60 (0-99); HEMATOCRIT 25.6 % (38.0-47.0); HEMOGLOBIN 8.1 g/dL (12.6-16.3); LEFT SHIFT FLG 10 (0-99); LIPEMIA HEMOLYSIS FLAG 80 (0-99); MEAN CELL HEMOGLOBIN CONCENTR. 31.6 g/dL (32.4-36.7); MEAN CELL VOLUME 85.3 fL (81.5-99.8); MEAN PLATELET VOLUME 9.3 fL (8.7-11.7); PLATELET CLUMPS FLAG 0 (0-99); PLATELET COUNT 247 10^3/uL (150-400)
[2016-10-27 04:59] LABS: RED CELL DISTRIBUTION WIDTH 26.3 % (11.5-15.2)
[2016-10-27 05:08] LABS: ALBUMIN 2.1 g/dL (3.5-5.0); ANION GAP 8 mEq/L (8-16); CALCIUM 7.9 mg/dL (8.5-10.4); CARBON DIOXIDE 24 mEq/l (22-31); CHLORIDE 103 mEq/L (97-110); CREATININE 1.6 mg/dL (0.6-1.0); GLOMERULAR FILTRATION RATE 31; GLUCOSE 115 mg/dL (70-100); POTASSIUM 3.8 mEq/L (3.5-5.2); SODIUM 135 mEq/L (134-144)
[2016-10-27 05:19] LABS: PTH INTACT NO MINERALS 45.1 pg/ml (10.8-79.4); TROPONIN I 0.019 ng/mL (0-0.034)
[2016-10-27 05:23] LABS: MACROCYTES 1+; MICROCYTES 2+
[2016-10-27 05:24] LABS: HYPOCHROMIA 1+; PLATELET ESTIMATE ADEQUATE (ADEQ)
[2016-10-27] MEDS: METOPROLOL TARTRATE 25 MG TAB PO SCH ×2 (08:20→20:13)
[2016-10-27] MEDS: HYDROmorphONE/DILAUDID 2 MG TAB PO PRN ×3 (08:22→19:30)
--- NOTE | 2016-10-27 08:51 | CPEKG ---
Heart Rate: 92 RR Interval: 652 P-R Interval: 240 QRSD Interval: 102 QT Interval: 332 QTC Interval: 411 P [place]: 46 QRS [place]: 28 T Wave [place]: 14 EKG Severity - ABNORMAL ECG - EKG Impression: SINUS RHYTHM EKG Impression: MULTIPLE ATRIAL PREMATURE COMPLEXES EKG Impression: FIRST DEGREE AV BLOCK EKG Impression: CONSIDER POSTERIOR INFARCT Electronically Signed By: Sera Guadarrama 27-Oct-2016 09:53:55
[2016-10-27] MEDS: HEPARIN 5,000 UNIT/0.5 ML SYR SC SCH ×2 (10:19→20:10)
--- NOTE | 2016-10-27 10:23 | HOSPPROG ---
Hospitalist Progress Note Assessment/Plan: ASSESSMENT/PLAN: # SVT/AFib - currently normal sinus rhythm; echo reviewed - R atrial dilation - metop 25 bid - cont to hold lasix today, restart soon - consider PE as etiology, but given hemodynamics/O2 requirement think unlikely - no AC given limited time in a-fib and post-op - cont tele # sigmoid adenoCa s/p resection/ostomy - EDMUND in place - onc referral # ABLA in setting of chronic Fe defic anemia s/p 1U PRBC - stable # hypoxia, post-op - follow, attempt to wean O2 # GIOVANY on CKD - back to baseline, follow # HLD - lipitor # chronic UTI - amox at home, levaquin now # severe pulm htn - no vol overload; hold lasix as above today # FCFT # SQH SUBJECTIVE: The no dizziness SVT today; mild epigastric discomfort; eating solid foods, normal ostomy output OBJECTIVE: Vitals reviewed Comfortable, no acute distress Regular rate and rhythm, no murmurs rubs or gallops No respiratory distress, lungs clear to auscultation bilaterally; no wheezes rales or rhonchi Abdomen with normal bowel sounds, EDMUND drain in place, ostomy with black stool; mildly epigastric tender to palpation, soft LABORATORY DATA: Hemoglobin 8.1, creatinine 1.6 DIRECTOR OF IT OPERATIONS: Telemetry personally reviewed EKG personally reviewed, SVT Chart reviewed Objective: Vital Signs Temp Pulse Resp BP Pulse Ox 36.8 C 85 16 125/79 H 97 10/27/16 07:55 10/27/16 08:20 10/27/16 07:55 10/27/16 08:20 10/27/16 07:55 Laboratory Results 10/27/16 04:33 10/27/16 04:33 10/26/16 10/27/16 10/28/16 05:59 05:59 05:59 Intake Total 950 1720 Output Total 1550 2960 Balance -600 -1240 ICD10 Worksheet Patient Problems: Problems Problem Status Diagnosed Acute kidney failure Acute Anemia Acute CHF (congestive heart failure) Acute CHF (congestive heart failure), NYHA class II Acute Hypertension Acute Hypoxemia Acute Renal insufficiency Acute Shortness of breath Acute
--- NOTE | 2016-10-27 12:26 | SOAPPROG ---
SOAP Progress Note Assessment/Plan: Assessment: 76yo F POD#6 s/p lap assisted sigmoid colectomy with diverting ostomy for sigmoid colon ca Path shows T2N0 tumor. Will f/u with oncology as outpatient SVT overnight - will likely stay today for tele monitoring Pain controlled with PO dilaudid Ostomy education by WOCN Tolerating regular diet GIOVANY - Cr improving, Voiding spontaneously Encouraged ambulation and IS, PT Drain out prior to discharge PPx: sc heparin, scds Appreciate hospitalist management of comorbidities Seen with Dr. Ahn. Likely home tomorrow as long as no new cardiac issues S: increased nausea this morning. O: sitting upright in chair, comfortable, NAD supplemental O2, no increased WOB incisions CDI. +BS. soft, nontender, nd. EDMUND serosanguinous. ileostomy with thin brown stool in appliance Objective: Vital Signs Temp Pulse Resp BP Pulse Ox 36.8 C 71 21 H 131/69 H 97 10/27/16 11:27 10/27/16 11:27 10/27/16 11:27 10/27/16 11:27 10/27/16 11:27 Laboratory Results 10/27/16 04:33 10/27/16 04:33 10/26/16 10/27/16 10/28/16 05:59 05:59 05:59 Intake Total 950 1720 Output Total 1550 2960 Balance -600 -1240 ICD10 Worksheet Patient Problems: Problems Problem Status Diagnosed Acute kidney failure Acute Anemia Acute CHF (congestive heart failure) Acute CHF (congestive heart failure), NYHA class II Acute Hypertension Acute Hypoxemia Acute Renal insufficiency Acute Shortness of breath Acute
[2016-10-27] MEDS: ALLOPURINOL 100 MG TAB PO SCH (20:10)
[2016-10-27] MEDS: ATORVASTATIN CALCIUM 10 MG TAB PO SCH (20:11)
[2016-10-28 06:00] LABS: % IMMATURE GRANULYOCYTES 2.8 % (0.0-1.1); ABSOLUTE IMMATURE GRANULOCYTES 0.15 10^3/uL (0.00-0.10); ADD DIFF? NO; ADD MORPH? YES; ADD SCAN? NO; ATYPICAL LYMPHOCYTE FLAG 10 (0-99); FRAGMENT RBC FLAG 40 (0-99); HEMATOCRIT 25.9 % (38.0-47.0); HEMOGLOBIN 8.1 g/dL (12.6-16.3); LEFT SHIFT FLG 20 (0-99); LIPEMIA HEMOLYSIS FLAG 80 (0-99); MEAN CELL HEMOGLOBIN 27.2 pg (27.9-34.1); MEAN CELL HEMOGLOBIN CONCENTR. 31.3 g/dL (32.4-36.7); MEAN CELL VOLUME 86.9 fL (81.5-99.8); MEAN PLATELET VOLUME 9.3 fL (8.7-11.7); PLATELET CLUMPS FLAG 0 (0-99); PLATELET COUNT 240 10^3/uL (150-400); RED BLOOD CELL COUNT 2.98 10^6/uL (4.18-5.33)
[2016-10-28 06:02] LABS: RED CELL DISTRIBUTION WIDTH 26.2 % (11.5-15.2)
[2016-10-28 06:28] LABS: ANION GAP 5 mEq/L (8-16); CALCIUM 7.8 mg/dL (8.5-10.4); CARBON DIOXIDE 26 mEq/l (22-31); CHLORIDE 103 mEq/L (97-110); CREATININE 1.8 mg/dL (0.6-1.0); GLOMERULAR FILTRATION RATE 27; GLUCOSE 111 mg/dL (70-100); POTASSIUM 4.1 mEq/L (3.5-5.2); SODIUM 134 mEq/L (134-144)
[2016-10-28 06:44] LABS: HYPOCHROMIA 1+; MACROCYTES 1+; MICROCYTES 2+; PLATELET ESTIMATE ADEQUATE (ADEQ)
[2016-10-28 07:36] VITALS: RESP 18
[2016-10-28 08:11] LABS: COLOR YELLOW; LEUKOCYTE ESTERASE,URINE NEGATIVE (NEGATIVE); NITRITE,URINE NEGATIVE (NEGATIVE)
[2016-10-28] MEDS: HYDROmorphONE/DILAUDID 2 MG TAB PO PRN ×2 (09:15→11:26)
[2016-10-28] MEDS: METOPROLOL TARTRATE 25 MG TAB PO SCH (09:17)
[2016-10-28] MEDS: HEPARIN 5,000 UNIT/0.5 ML SYR SC SCH (09:18)
--- NOTE | 2016-10-28 09:46 | PDIAF ---
- Diagnosis Diagnosis: colon cancer Code Status: Full Code - Medication Management Discharge Medications: Medications to Continue on Transfer Allopurinol [Allopurinol 100 MG (*)] 100 mg PO HS 09/10/16 [Last Taken 10/16/16] Atorvastatin Calcium [Lipitor 10 mg (*)] 10 mg PO HS 09/10/16 [Last Taken ] Multivitamins [Multivitamin (*)] 1 each PO DAILY 10/18/16 [Last Taken 10/19/16] HYDROmorphone HCL [Dilaudid 2 mg (*)] 2 - 4 mg PO Q4HRS PRN #30 tab 10/28/16 [ Last Taken Unknown] Metoprolol Tartrate [Lopressor 25 mg (*)] 25 mg PO BID #60 tab 10/28/16 [Last Taken Unknown] Discharge Medications: Refer to the Discharge Home Medication list for PRN reason. - Orders Services needed: Home Care, Registered Nurse Home Care Face to Face: I certify that this patient was under my care and that I had the required [id number] encounter meeting the encounter requirements on the discharge day. My findings support the fact that the patient is homebound as defined in CMS Chapter 7 Medicare Benefits Manual 30.1.1, The condition of the patient is such that there exists a normal inability to leave home and consequently, leaving home would require a considerable and taxing effort. Diet Recommendation: no restrictions on diet Wound Care Instructions: Remove red rubber catheter with suture removal kit with first appliance change. There is a suture on each side of the red rubber. Remove suture and slide the red rubber out. Please arrange for patient to have nursing home director visit the day after she is discharged, and every 3 days for ostomy appliance changes until patient is able to demonstrate self-care. Initial supply order to [facility] faxed on 10/26/2016. Supply order includes: barrier wafers, pouches, deodorizer, barrier rings, and adhesive remover wipes. Ileostomy care instructions: Procedure to change ostomy pouching system: change every 3 days and as needed. - Carefully peel soiled barrier away from skin using [employer] Adhesive Remover. - Gently wipe stoma and peristomal skin with toilet paper, then with damp washcloth (plain warm water--no soap). - Pat peristomal skin dry. - Mold a [place] Adapt moldable barrier ring around the stoma and peristomal skin in such a way as to create a more even surface in the surrounding skin to adhere the skin barrier wafer onto. - Remove plastic backing from skin barrier wafer. Place over stoma and gently mold the opening at the center of the hydrocolloid so that it will fit like a turtleneck around the stoma ([place]rum skin barriers are moldable using gloved fingers--no need to use scissors). - Remove the paper backing around the outer sections of the wafer and smooth into place. - Attach the pouch. Do a gentle tug test to make sure that the flanges are securely connected all the way around (like a Tupperware lid). - Secure the drainable end of the pouch by folding it up following the built-in folds, until the Velcro strips can be secured to each other. No heavy lifting pushing pulling greater than 15 lbs for 5 weeks Sutures/[place] Site: remove red rubber cather with first appliance change Activity/Weight Bearing Restrictions: no heavy lifting pushing pulling greater than 15 lbs for 5 weeks - Follow Up Care Current Providers and Referrals: Alysia Ahn MD [Medical Doctor] - (Queta Edwards 11/08 call to make an appt) Asad Otoole MD [Primary Care Provider] -
--- NOTE | 2016-10-28 09:47 | SOAPPROG ---
SOAP Progress Note Assessment/Plan: Assessment: Assessment: 76yo F POD#7 s/p lap assisted sigmoid colectomy with diverting ostomy for sigmoid colon ca Path shows T2N0 tumor. Will f/u with oncology as outpatient. Has appt scheduled with Dr. Comer already SVT and afib now NSR. DC Lasix, Metoprolol 25 mg po bid. Notified Dr. Falcon of changes Pain controlled with PO dilaudid Ostomy education by WOCN - home care. Remove red rubber at next appliance change Tolerating regular diet GIOVANY - Cr improving, Voiding spontaneously Encouraged ambulation and IS, PT Drain out prior to discharge PPx: sc heparin, scds Appreciate hospitalist management of comorbidities S: feeling better today O: sitting upright in chair, comfortable, NAD supplemental O2, no increased WOB incisions CDI. +BS. soft, nontender, nd. EDMUND serosanguinous. ileostomy with thin brown stool in appliance Plan: 10/28/16 09:47 10/28/16 10:00 Objective: Vital Signs Temp Pulse Resp BP Pulse Ox 36.6 C 86 18 129/71 H 96 10/28/16 07:35 10/28/16 09:17 10/28/16 07:35 10/28/16 09:17 10/28/16 07:35 Laboratory Results 10/28/16 04:50 10/28/16 04:50 10/27/16 10/28/16 10/29/16 05:59 05:59 05:59 Intake Total 1720 1150 Output Total 2960 1040 Balance -1240 110 ICD10 Worksheet Patient Problems: Problems Problem Status Diagnosed Acute kidney failure Acute Anemia Acute CHF (congestive heart failure) Acute CHF (congestive heart failure), NYHA class II Acute Hypertension Acute Hypoxemia Acute Renal insufficiency Acute Shortness of breath Acute
--- NOTE | 2016-10-28 09:53 | HOSPPROG ---
Hospitalist Progress Note Assessment/Plan: ASSESSMENT/PLAN: # SVT/AFib - agree likely d/t hypovolemia - metop at increased dose 25 bid - hold lasix - patient will monitor her daily weight and edema and take lasix 20mg PO daily prn # sigmoid adenoCa s/p resection/ostomy - f/u Dr Comer # ABLA in setting of chronic Fe defic anemia s/p 1U PRBC - stable # hypoxia, post-op - follow, attempt to wean O2 # GIOVANY on CKD - back to baseline, follow - PTH/urine SCr/protein drawn # HLD - lipitor # chronic UTI - amox at home, levaquin now - dc today # severe pulm htn - no vol overload; hold lasix as above today # FCFT # SQH ok for dc from IM perspective; has f/u with Dr Falcon SUBJECTIVE: doing well; no additional episodes of SVT OBJECTIVE: Vitals reviewed Comfortable, no acute distress Regular rate and rhythm, no murmurs rubs or gallops No respiratory distress, lungs clear to auscultation bilaterally; no wheezes rales or rhonchi Abdomen with normal bowel sounds, EDMUND drain in place, ostomy with black stool; mildly epigastric tender to palpation, soft JAILER/TRAINING OFFICER: tele personally reivewed - no SVT discussed with Dr Ahn Objective: Vital Signs Temp Pulse Resp BP Pulse Ox 36.6 C 86 18 129/71 H 96 10/28/16 07:35 10/28/16 09:17 10/28/16 07:35 10/28/16 09:17 10/28/16 07:35 Laboratory Results 10/28/16 04:50 10/28/16 04:50 10/27/16 10/28/16 10/29/16 05:59 05:59 05:59 Intake Total 1720 1150 Output Total 2960 1040 Balance -1240 110 ICD10 Worksheet Patient Problems: Problems Problem Status Diagnosed Acute kidney failure Acute Anemia Acute CHF (congestive heart failure) Acute CHF (congestive heart failure), NYHA class II Acute Hypertension Acute Hypoxemia Acute Renal insufficiency Acute Shortness of breath Acute
--- NOTE | 2016-10-28 11:26 | PDIAF ---
- Diagnosis Diagnosis: colon cancer Code Status: Full Code - Medication Management Discharge Medications: Medications to Continue on Transfer Allopurinol [Allopurinol 100 MG (*)] 100 mg PO HS 09/10/16 [Last Taken 10/16/16] Atorvastatin Calcium [Lipitor 10 mg (*)] 10 mg PO HS 09/10/16 [Last Taken ] Multivitamins [Multivitamin (*)] 1 each PO DAILY 10/18/16 [Last Taken 10/19/16] HYDROmorphone HCL [Dilaudid 2 mg (*)] 2 - 4 mg PO Q4HRS PRN #30 tab 10/28/16 [ Last Taken Unknown] Metoprolol Tartrate [Lopressor 25 mg (*)] 25 mg PO BID #60 tab 10/28/16 [Last Taken Unknown] Discharge Medications: Refer to the Discharge Home Medication list for PRN reason. - Orders Services needed: Home Care, Registered Nurse, Physical Therapy Home Care Face to Face: I certify that this patient was under my care and that I had the required [id number] encounter meeting the encounter requirements on the discharge day. My findings support the fact that the patient is homebound as defined in CMS Chapter 7 Medicare Benefits Manual 30.1.1, The condition of the patient is such that there exists a normal inability to leave home and consequently, leaving home would require a considerable and taxing effort. Diet Recommendation: no restrictions on diet Wound Care Instructions: Remove red rubber catheter with suture removal kit with first appliance change. There is a suture on each side of the red rubber. Remove suture and slide the red rubber out. Please arrange for patient to have home health scheduler visit the day after she is discharged, and every 3 days for ostomy appliance changes until patient is able to demonstrate self-care. Initial supply order to [facility] faxed on 10/26/2016. Supply order includes: barrier wafers, pouches, deodorizer, barrier rings, and adhesive remover wipes. Ileostomy care instructions: Procedure to change ostomy pouching system: change every 3 days and as needed. - Carefully peel soiled barrier away from skin using S[employer] Adhesive Remover. - Gently wipe stoma and peristomal skin with toilet paper, then with damp washcloth (plain warm water--no soap). - Pat peristomal skin dry. - Mold a [place] Adapt moldable barrier ring around the stoma and peristomal skin in such a way as to create a more even surface in the surrounding skin to adhere the skin barrier wafer onto. - Remove plastic backing from skin barrier wafer. Place over stoma and gently mold the opening at the center of the hydrocolloid so that it will fit like a turtleneck around the stoma (Walter skin barriers are moldable using gloved fingers--no need to use scissors). - Remove the paper backing around the outer sections of the wafer and smooth into place. - Attach the pouch. Do a gentle tug test to make sure that the flanges are securely connected all the way around (like a Tupperware lid). - Secure the drainable end of the pouch by folding it up following the built-in folds, until the Velcro strips can be secured to each other. No heavy lifting pushing pulling greater than 15 lbs for 5 weeks Sutures/[place] Site: remove red rubber cather with first appliance change Activity/Weight Bearing Restrictions: no heavy lifting pushing pulling greater than 15 lbs for 5 weeks - Follow Up Care Current Providers and Referrals: Alysia Ahn MD [Medical Doctor] - (Queta Edwards 11/08 call to make an appt) Asad Otoole MD [Primary Care Provider] -
[2016-10-28 11:58] VITALS: BP 107/70; PULSE 67; TEMP 98.1; O2SAT 99
--- NOTE | 2016-11-08 14:45 | GDS ---
[f rep st] DISCHARGE SUMMARY ADMITTING DIAGNOSIS: Sigmoid colon cancer. SECONDARY DIAGNOSES: 1. Supraventricular tachycardia, resolved. 2. Severe pulmonary hypertension, stable. 3. Acute on chronic anemia. 4. Chronic kidney disease with baseline creatinine 1.6. 5. Chronic urinary tract infection. 6. Gout. 7. Hyperlipidemia. 8. Left renal artery stenosis. 9. Congestive heart failure. REASON FOR ADMISSION: The patient is a 76-year-old woman, recently diagnosed with sigmoid colon canc er. She was admitted for surgical intervention, pain control. Return of bowel function, and observat ion. HOSPITAL COURSE: She was taken to the operating room on 10/21/[address] Alysia Ahn for laparoscop ic lysis of adhesions, laparoscopic low-anterior resection with splenic flexure takedown, and loop di verting ileostomy. At the time of surgery, the tumor was adhered to the uterus. 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 The margins were clear. 0/16 lymph nodes were positive with final pathologic staging T2N0. She was followed by the hospitalist service through her hospital stay for her multiple comorbidities. On postoperative day #2, she received a unit of PRBCs for a hemoglobin o f less than 7. Her hemoglobin responded adequately. She was started on Levaquin x5 days for chronic UTI. On postoperative day #3, she was advanced to a regular diet, which she tolerated without worse stacia nausea, vomiting or distention. She was seen by the wound ostomy nurse for ostomy education and care. Later that evening, she went into SVT with a rate in the 160s, SBP 100s, and symptomatic ligh theadedness. She initially responded to carotid massage, but less than 1 minute later returned to SV T. She converted to normal sinus rhythm and was started on metoprolol. She did not have any further cardiac events through the rest of her hospital stay. By postoperative day #7, she was tolerating a regular diet, her pain was controlled with oral pain medications, she was ambulating independently, and was ready for discharge. CONDITION: She was discharged home in stable condition, pain controlled with oral pain medication, t olerating regular diet, ambulating independently. She will be sent home with home care for ostomy ed ucation and changes, as well as physical therapy. DISCHARGE MEDICATIONS: She was provided a prescription for Dilaudid, instructed to resume home medic adeel. Please see EMR for further details. DISCHARGE INSTRUCTIONS AND FOLLOWUP: She will follow up with Dr. Alysia Ahn in 2 weeks for routine postoperative check. She will follow up with Dr. Comer, her oncologist. She will have home care for ostomy education and care. She understands to avoid heavy lifting, pushing, or pulling for 6 wee ks, and she may shower. She understands to call our office with any worsening symptoms, questions or concerns. /[id number]/MODL
== END 2016-10-28 14:21 | disposition home health service (06) | DRG 330 ==
LOC: F3E 12:57
PROVIDERS: ADMIT Surgery; ATTEND Surgery
PROC: 0D1B0Z4 Bypass Ileum to Cutaneous, Open Approach (ICD-10-PCS; principal; 2016-10-21 14:30)
PROC: 0DNL4ZZ Release Transverse Colon, Percutaneous Endoscopic Approach (ICD-10-PCS; principal; 2016-10-21 14:30)
PROC: 0DTN4ZZ Resection of Sigmoid Colon, Percutaneous Endoscopic Approach (ICD-10-PCS; principal; 2016-10-21 14:30)
PROC: 30233N1 Transfusion of Nonautologous Red Blood Cells into Peripheral Vein, Percutaneous Approach (ICD-10-PCS; 2016-10-23)
DX: C18.7 Malignant neoplasm of sigmoid colon (principal); I50.32 Chronic diastolic (congestive) heart failure; N39.0 Urinary tract infection, site not specified; K63.5 Polyp of colon; I27.2 Other secondary pulmonary hypertension; D62 Acute posthemorrhagic anemia; N17.9 Acute kidney failure, unspecified; I13.0 Hypertensive heart and chronic kidney disease with heart failure and stage 1 through stage 4 chronic kidney disease, or unspecified chronic kidney disease; N18.3 Chronic kidney disease, stage 3 (moderate); I47.1 Supraventricular tachycardia; E11.9 Type 2 diabetes mellitus without complications; E78.5 Hyperlipidemia, unspecified; Z99.81 Dependence on supplemental oxygen
CPT/HCPCS: 97110-GP; 97116-GP; 97162-GP; 97530-GP; G8978-GP-CK; G8979-GP-CI; J0697; J1100; J1170; J2001; J2250; J2370; J2405; J2704; J2916; J3010; P9016; P9041; P9047

== ENCOUNTER → 2016-12-28 | Outpatient (CLI) | payer OTHER | LOC: FIMAGING 09:06 | PROVIDERS: ATTEND Surgery | DX: K57.90 Diverticulosis of intestine, part unspecified, without perforation or abscess without bleeding (principal); C18.7 Malignant neoplasm of sigmoid colon; Z93.3 Colostomy status ==

== ENCOUNTER 2017-01-07 05:52 | Inpatient (IN) | payer OTHER ==
[2017-01-07] MEDS ORDERED: cefOXitin SODIUM 1 GM in D5W 50 ML IV ONE (06:00)
[2017-01-07] MEDS ORDERED: LR 1,000 ML IV ONE (06:36)
[2017-01-07] MEDS ORDERED: fentaNYL 100 MCG/2 ML INJ ONE ×6 (06:55→10:30)
[2017-01-07] MEDS ORDERED: BUPIVACAINE 0.5% 30 ML SDV ONE (07:00)
[2017-01-07] MEDS ORDERED: PROPOFOL 200 MG/20 ML VIAL ONE (07:08)
[2017-01-07] MEDS ORDERED: ACETAMINOPHEN 325 MG TAB PO PRN (07:29)
[2017-01-07] MEDS ORDERED: diphenhydrAMINE 25 MG CAP PO PRN (07:29)
[2017-01-07] MEDS ORDERED: ONDANSETRON DISINTEGRATING 4 MG TAB PO PRN (07:29)
[2017-01-07] MEDS ORDERED: ONDANSETRON 4 MG/2 ML VIAL IVP PRN (07:29)
[2017-01-07] MEDS ORDERED: NS 1,000 ML IV SCH (07:30)
[2017-01-07] MEDS ORDERED: HYDROmorphONE/DILAUDID 1 MG/ML SYR IVP PRN (07:30)
[2017-01-07] MEDS ORDERED: HYDROmorphONE/DILAUDID 1 MG/ML SYR ONE ×2 (09:56→10:30)
[2017-01-07] MEDS ORDERED: ONDANSETRON 4 MG/2 ML VIAL ONE (10:30)
[2017-01-07] MEDS ORDERED: HYDROCODONE/APAP 5/325 TAB ONE (10:31)
--- NOTE | 2017-01-07 10:34 | POSTOPPROG ---
Post Op Note Date of Operation: 01/07/17 Surgeon: Alysia Ahn Business Continuity Specialist: paresh Anesthesiologist: carito Anesthesia: GET(General Endotracheal) Pre-op Diagnosis: colon cancer Post-op Diagnosis: same Indication: 76yo F with a diverting ileostomy who presents for reversal Procedure: ileostomy takedown Findings: none unusual Inf/Abcess present in the surg proc area at time of surgery?: No Depth: Organ Space EBL: Minimal Complications: none immediately postop Specimen(s): ileostomy
--- NOTE | 2017-01-07 11:23 | GOP ---
[f rep st] OPERATIVE REPORT DATE OF OPERATION: 01/07/2017 SURGEON: Alysia Ahn MD BATCH HEAT TREAT OPERATOR: Queta Edwards PA-C. ANESTHESIA: General. ANESTHESIOLOGIST: Dr. Fadi Christopher PREOPERATIVE DIAGNOSIS: Sigmoid colon cancer with diverting loop ileostomy. POSTOPERATIVE DIAGNOSIS: Sigmoid colon cancer with diverting loop ileostomy. PROCEDURE PERFORMED: Loop ileostomy take down. FINDINGS: The bowel was well adhered to the fascia, and there were a few intraabdominal adhesions a s well. SPECIMENS: Terminal ilium. ESTIMATED BLOOD LOSS: 100 cc. INDICATIONS: The patient is a 76-year-old woman who had a low anterior resection with diverting loo p ileostomy for a diagnosis of colon cancer. She had a preoperative Gastrografin enema which showed the anastomosis to be patent and no signs of leak. DESCRIPTION OF PROCEDURE: The patient was brought into the operating room, placed supine on the tab le. She was placed supine on the table, and general anesthesia was administered. I sutured her ile ostomy closed with 2-0 silk. She was then prepped with Betadine and draped in the usual sterile fas hion. I made an ellipse around her ileostomy, dissected down through the subcutaneous tissues until I encountered the loops of the bowel. I carefully dissected these away from the fascia. It was ex tremely adhered to the fascia that took quite a bit of time. Once I was able to identify the fascia , I could elevate it and make sure that there were no intraabdominal adhesions. In the inferior low er right quadrant, there were adhesions. I enlarged the incision slightly so that I could safely ta ke down the omentum from another loop of bowel. Once this was free, the bowel was able to be extend ed into the incision quite freely. I selected points of transection on the ilium, and I transected each limb with the DORA 75. I divided the mesentery in a clamp-tie fashion. The specimen was passed off the field. Next, I made an enterotomy in each limb of the bowel and inserted a DORA 75. The an astomosis was widely patent. I closed the enterotomy with 3-0 Vicryl, followed by 3-0 Vicryl pop-of fs. The anastomosis was widely patent. There was no tension on the anastomosis. The bowel was ret urned to the abdominal cavity. I closed the fascia with 0 PDS. The wound was irrigated. I closed the skin with 3-0 Vicryl and a pursestring suture. In the base of the wound, I placed [place] Hydrof era Blue and an Allevyn border was placed. She was awakened in the operating room, extubated, trans ferred to PACU in stable condition. /[id number]/MODL
[2017-01-07] MEDS: HYDROCODONE/APAP 5/325 TAB PO PRN ×2 (16:23→21:59)
[2017-01-07] MEDS: METOPROLOL TARTRATE 25 MG TAB PO SCH (21:59)
[2017-01-08 05:41] LABS: % IMMATURE GRANULYOCYTES 0.6 % (0.0-1.1); ABSOLUTE IMMATURE GRANULOCYTES 0.05 10^3/uL (0.00-0.10); ADD DIFF? NO; ADD MORPH? NO; ADD SCAN? NO; ATYPICAL LYMPHOCYTE FLAG 0 (0-99); FRAGMENT RBC FLAG 0 (0-99); HEMATOCRIT 37.8 % (38.0-47.0); HEMOGLOBIN 12.4 g/dL (12.6-16.3); LEFT SHIFT FLG 0 (0-99); LIPEMIA HEMOLYSIS FLAG 80 (0-99); MEAN CELL HEMOGLOBIN CONCENTR. 32.8 g/dL (32.4-36.7); MEAN CELL VOLUME 97.4 fL (81.5-99.8); MEAN PLATELET VOLUME 9.8 fL (8.7-11.7); PLATELET CLUMPS FLAG 20 (0-99); PLATELET COUNT 156 10^3/uL (150-400); RED BLOOD CELL COUNT 3.88 10^6/uL (4.18-5.33)
[2017-01-08 05:55] LABS: ANION GAP 9 mEq/L (8-16); CALCIUM 9.1 mg/dL (8.5-10.4); CARBON DIOXIDE 20 mEq/l (22-31); CHLORIDE 106 mEq/L (97-110); GLOMERULAR FILTRATION RATE 24; GLUCOSE 115 mg/dL (70-100); POTASSIUM 4.6 mEq/L (3.5-5.2); SODIUM 135 mEq/L (134-144)
[2017-01-08] MEDS: HYDROCODONE/APAP 5/325 TAB PO PRN ×3 (08:36→23:09)
[2017-01-08] MEDS: METOPROLOL TARTRATE 25 MG TAB PO SCH ×2 (09:19→20:52)
[2017-01-08] MEDS: ENOXAPARIN 40 MG/0.4 ML SYR SC SCH (09:20)
--- NOTE | 2017-01-08 09:36 | SOAPPROG ---
SOAP Progress Note Assessment/Plan: Assessment: POD #1 s/p ileostomy takedown Doing well Tolerating clearss Patient requested hospitalist consult S:Some pain this am. Passing flatus. No nausea Plan: 01/08/17 09:34 Objective: Vital Signs Temp Pulse Resp BP Pulse Ox 36.6 C 68 18 124/68 H 97 01/08/17 04:00 01/08/17 09:19 01/08/17 08:00 01/08/17 09:19 01/08/17 08:00 Laboratory Results 01/08/17 05:11 01/08/17 05:11 01/07/17 01/08/17 01/09/17 05:59 05:59 05:59 Intake Total 1145 Output Total 1000 Balance 145 Physical Exam - Physical Exam General Appearance: WD/WN, alert, no apparent distress EENT: PERRL/EOMI, normal ENT inspection Respiratory: chest non-tender, lungs clear Cardiac/Chest: regular rate, rhythm Abdomen: soft, other (bowel sounds present, appropriately tender by incision, dressing with staining) ICD10 Worksheet Patient Problems: Problems Problem Status Onset Acute kidney failure Acute Anemia Acute CHF (congestive heart failure) Acute CHF (congestive heart failure), NYHA class II Acute Hypertension Acute Hypoxemia Acute Renal insufficiency Acute Shortness of breath Acute
[2017-01-08] MEDS ORDERED: FUROSEMIDE 20 MG TAB PO ONE (09:37)
[2017-01-08] MEDS ORDERED: NS 1,000 ML IV SCH (14:00)
--- NOTE | 2017-01-08 14:25 | GCON ---
[f rep st] CONSULTATION DATE OF CONSULTATION: 01/08/2017 CHIEF COMPLAINT: The patient was admitted by the general surgery team for ileostomy takedown, and p er the patient's request. Medicine was consulted for assistance with management in her other chroni c medical illnesses, including diastolic dysfunction and chronic kidney disease. HISTORY OF PRESENT ILLNESS: The patient is a 76-year-old female, with a history of severe pulmonary hypertension, diastolic dysfunction and chronic kidney disease, who is admitted to the hospital by the general surgery service for ileostomy takedown. She was admitted in August of 2016 for volume overload in the setting of severe pulmonary hypertension. During that hospitalization, workup for iron deficiency anemia revealed a large obstructing sigmoid colon mass. She then underwent colectom y and loop ileostomy, October 21, 2016. She was ultimately diagnosed with stage I colon cancer. Cm s not required any chemotherapy or radiation, and returned to the hospital today for ileostomy takedown. She is overall feeling well. She does repor t decreased oral intake over the past couple of days, perioperatively. She denies chest pain, shor tness of breath, changes in her weight or peripheral edema. Further she denies orthopnea or paroxys mal nocturnal dyspnea. She has had no fevers, chills, and denies nausea, vomiting, diarrhea, or uri nary symptoms. She is postop day 1, and is passing flatus, and taking clear liquids without problem s. PAST MEDICAL HISTORY: 1. Severe pulmonary hypertension. 2. Obstructive sleep apnea. 3. Diastolic dysfunction. 4. Iron-deficiency anemia. 5. Stage I colon cancer. 6. Chronic kidney disease with baseline creatinine of 1.6. 7. Chronic UTI. 8. Gout. 9. Left renal artery stenosis by CT angiogram in 2003. 10. Hyperlipidemia. SURGICAL HISTORY: Colectomy and ileostomy takedown. SOCIAL HISTORY: The patient is , her is present at the bedside. She is a nonsmoker. She reports occasional alcohol use. FAMILY HISTORY: Negative for colon cancer, is otherwise non-pertinent. REVIEW OF SYSTEMS: A 10-point review of systems was performed and is negative, except as per HPI. OBJECTIVE: VITAL SIGNS: Temperature is 36.5, blood pressure 122/64, heart rate 67, respiratory rat e 16, she is 93% on room air. GENERAL: The patient is awake, alert, oriented, in no acute distress . HEENT: Head is atraumatic, normocephalic. Pupils equal, round, and reactive to light. Extraocu lar muscles are intact. Oropharynx is clear. Mucous membranes are moist. NECK: Supple. There is no JVD. HEART: Regular rate and rhythm. LUNGS: Clear to auscultation bilaterally. ABDOMEN: So ft, with minimal distention, nontender. She has decreased bowel tones present. EXTREMITIES: SCDs are in place. There is trace bilateral lower extremity edema. LABORATORY DATA: CBC revealed a white blood cell count of 8, hemoglobin 12.4, which is improved fro m baseline of 8, prior to her colon resection. Platelets are 156. Basic metabolic panel reveals a low CO2 of 20, otherwise normal electrolytes, BUN 46, creatinine 2, blood sugar is 115. ASSESSMENT AND PLAN: The patient is a 76-year-old female with a history of diastolic dysfunction, s evere pulmonary hypertension, and stage I colon cancer, who is status post colectomy, and just under went an ileostomy takedown, postop day 1. 1. Stage I colon cancer, status post colectomy and ileostomy takedown, postop day 1, further postop erative management per the surgical team. 2. Acute kidney injury in the setting of chronic kidney disease. Her baseline creatinine is 1.6, h er creatinine is currently 2.0. I suspect she had some fluid shifts perioperatively, it is likely p rerenal with decreased intake. I am going to give her some very gentle hydration with normal saline , and we will exercise caution to prevent fluid overload, and continue to monitor her renal function . 3. Iron-deficiency anemia. Her hemoglobin is improved to 12.4 from 8 prior to her colon resection. 4. History of diastolic heart failure. I reviewed her last echocardiogram from August 2016, [facility] shows a normal ejection fraction of 60% to 65%. Moderately dilated right ventricle, with an eleva keyana right ventricular systolic pressure of 67. She appears euvolemic to slightly dry on exam. She received a half dose of her Lasix this morning. As above, I am going to give her very gentle IV hyd ration, we can likely resume her regular outpatient Lasix dose tomorrow. 5. Severe pulmonary hypertension. Etiology of this is unclear, though I suspect it may be secondar y to obstructive sleep apnea. She is currently in the process of outpatient workup for sleep apnea, and is not using CPAP or oxygen at this time. 6. Hyperlipidemia, continue statin. 7. DVT prophylaxis. Patient currently has SCDs. We will defer any pharmacologic prophylaxis to [facility] surgery team, as she is just 1 day postop. She is ambulatory. 8. Disposition: Continue inpatient status for ongoing recovery from her ileostomy takedown. 9. Code status: Patient is full code. Thank you very much for this consultation. Please contact us with any further questions or concerns . /[id number]/MODL
[2017-01-08] MEDS: ATORVASTATIN CALCIUM 10 MG TAB PO SCH (20:51)
[2017-01-08] MEDS: ALLOPURINOL 100 MG TAB PO SCH (20:52)
[2017-01-08] MEDS ORDERED: METOPROLOL TARTRATE 25 MG TAB PO SCH (21:00)
[2017-01-09] MEDS: HYDROCODONE/APAP 5/325 TAB PO PRN (04:41)
[2017-01-09 05:19] LABS: ANION GAP 9 mEq/L (8-16); CALCIUM 8.8 mg/dL (8.5-10.4); CARBON DIOXIDE 20 mEq/l (22-31); CHLORIDE 107 mEq/L (97-110); GLOMERULAR FILTRATION RATE 24; GLUCOSE 97 mg/dL (70-100); POTASSIUM 4.1 mEq/L (3.5-5.2); SODIUM 136 mEq/L (134-144)
[2017-01-09] MEDS: METOPROLOL TARTRATE 25 MG TAB PO SCH ×2 (09:10→22:43)
[2017-01-09] MEDS: ENOXAPARIN 40 MG/0.4 ML SYR SC SCH (09:10)
[2017-01-09] MEDS: HYDROmorphONE/DILAUDID 2 MG TAB PO PRN ×3 (09:57→22:42)
--- NOTE | 2017-01-09 10:35 | SOAPPROG ---
SOAP Progress Note Assessment/Plan: Assessment: POD #2 s/p ileostomy takedown Doing well Tolerating clears - no real return of bowel function - advance diet slowly Patient requested hospitalist consult S:Pain controlled. Passing flatus. No nausea Plan: 01/08/17 09:34 01/09/17 10:34 Objective: Vital Signs Temp Pulse Resp BP Pulse Ox 36.6 C 96 16 113/61 96 01/09/17 08:00 01/09/17 08:00 01/09/17 08:00 01/09/17 09:10 01/09/17 08:00 Laboratory Results 01/08/17 05:11 01/09/17 04:30 01/08/17 01/09/17 01/10/17 05:59 05:59 05:59 Intake Total 1145 1172 Output Total 1000 800 Balance 145 372 Physical Exam - Physical Exam General Appearance: WD/WN, alert, no apparent distress EENT: normal ENT inspection Respiratory: chest non-tender, lungs clear, normal breath sounds Cardiac/Chest: regular rate, rhythm Abdomen: normal bowel sounds, soft, other (dressing stained ) ICD10 Worksheet Patient Problems: Problems Problem Status Onset Acute kidney failure Acute Anemia Acute CHF (congestive heart failure) Acute CHF (congestive heart failure), NYHA class II Acute Hypertension Acute Hypoxemia Acute Renal insufficiency Acute Shortness of breath Acute
[2017-01-09] MEDS ORDERED: FUROSEMIDE 20 MG TAB PO SCH (15:00)
--- NOTE | 2017-01-09 16:59 | HOSPPROG ---
Hospitalist Progress Note Assessment/Plan: Colon ca - Stage 1, s/p resection with ileostomy takedown, POD #2. Post-op management per surgical team. GIOVANY / CKD - Baseline Cr 1.6. Elevated BUN suggests pre-renal, slight down- trend with IVF's overnight. Cr stable at 2.0. -resume gentle IVF's -follow bmp Anemia - Hgb improved since colon cancer resection. Follow. Chronic diastolic heart failure - Appears euvolemic to dry. Hold Lasix today and give gentle IVF's as above. Resume Lasix tomorrow. Pulmonary hypertension - suspect SHAHID is etiology, outpt workup in progress. PRN nocturnal O2. Hyperlipidemia - cont statin DVT PPLX - Lovenox Full code Dispo - cont inpt, possible dc in am Subjective: Pt feels well. She is ambulating frequently. Passing flatus, no BM yet. Pain fairly well controlled. No N/V. Taking po. Objective: Vital Signs Temp Pulse Resp BP Pulse Ox 37.1 C 74 16 122/80 H 95 01/09/17 16:00 01/09/17 16:00 01/09/17 16:00 01/09/17 16:00 01/09/17 16:00 Laboratory Results 01/08/17 05:11 01/09/17 04:30 01/08/17 01/09/17 01/10/17 05:59 05:59 05:59 Intake Total 1145 1172 Output Total 1000 800 Balance 145 372 ICD10 Worksheet Patient Problems: Problems Problem Status Onset Acute kidney failure Acute Anemia Acute CHF (congestive heart failure) Acute CHF (congestive heart failure), NYHA class II Acute Hypertension Acute Hypoxemia Acute Renal insufficiency Acute Shortness of breath Acute
[2017-01-09] MEDS: NS 1,000 ML IV SCH (17:46)
[2017-01-09] MEDS: ALLOPURINOL 100 MG TAB PO SCH (22:43)
[2017-01-09] MEDS: ATORVASTATIN CALCIUM 10 MG TAB PO SCH (22:43)
[2017-01-10 05:02] LABS: ANION GAP 6 mEq/L (8-16); CALCIUM 8.4 mg/dL (8.5-10.4); CARBON DIOXIDE 21 mEq/l (22-31); CHLORIDE 109 mEq/L (97-110); CREATININE 1.8 mg/dL (0.6-1.0); GLOMERULAR FILTRATION RATE 27; GLUCOSE 123 mg/dL (70-100); POTASSIUM 4.1 mEq/L (3.5-5.2); SODIUM 136 mEq/L (134-144)
[2017-01-10] MEDS: HYDROmorphONE/DILAUDID 2 MG TAB PO PRN ×5 (05:30→23:24)
[2017-01-10] MEDS: NS 1,000 ML IV SCH (05:37)
[2017-01-10] MEDS: FUROSEMIDE 20 MG TAB PO SCH (09:31)
[2017-01-10] MEDS: METOPROLOL TARTRATE 25 MG TAB PO SCH ×2 (09:31→21:50)
[2017-01-10] MEDS: ENOXAPARIN 30 MG/0.3 ML SYR SC SCH (09:32)
--- NOTE | 2017-01-10 09:54 | SOAPPROG ---
SOAP Progress Note Assessment/Plan: Assessment: 76yo F with sigmoid colon cancer s/p ileostomy takedown Pain controlled Tolerating regular diet Passing flatus and having bowel movements May shower Change outer dressing as needed. Ambulation Will f/u with Dr. Ahn/Queta ALONSO on Tuesday for packing change Home later today or tomorrow S: pain controlled. having bowel movements, diarrhea. Tolerating regular diet, no nausea O: sitting upright in bed, comfortable, NAD No increased WOB, CTAB RRR +BS, soft, nt, nd. Dressing intact Objective: Vital Signs Temp Pulse Resp BP Pulse Ox 37 C 72 14 125/65 H 95 01/10/17 08:00 01/10/17 09:31 01/10/17 08:00 01/10/17 09:31 01/10/17 08:00 Laboratory Results 01/08/17 05:11 01/10/17 04:15 01/09/17 01/10/17 01/11/17 05:59 05:59 05:59 Intake Total 1172 1608 Output Total 800 900 Balance 372 708 ICD10 Worksheet Patient Problems: Problems Problem Status Onset Acute kidney failure Acute Anemia Acute CHF (congestive heart failure) Acute CHF (congestive heart failure), NYHA class II Acute Hypertension Acute Hypoxemia Acute Renal insufficiency Acute Shortness of breath Acute
--- NOTE | 2017-01-10 17:25 | HOSPPROG ---
Hospitalist Progress Note Assessment/Plan: Colon ca - Stage 1, s/p resection with ileostomy takedown, POD #3. Post-op management per surgical team. GIOVANY / CKD - Baseline Cr 1.6. Treated with gentle IVF's past 2 nights due to suspected pre-renal state, Cr trended down to 1.8, closer to baseline. D/C IVF' s. Anemia - Hgb improved since colon cancer resection. Follow. Chronic diastolic heart failure - Appears euvolemic today, resume outpt lasix dose. Pulmonary hypertension - suspect SHAHID is etiology, outpt workup in progress. PRN nocturnal O2. Hyperlipidemia - cont statin DVT PPLX - Lovenox Full code Dispo - cont inpt, likely dc in am Subjective: PT feels well. She had some diarrhea overnight. No fevers/chills. Pain fairly well controlled. No N/v. Tolerating full diet. Objective: Vital Signs Temp Pulse Resp BP Pulse Ox 36.9 C 69 14 126/64 H 93 01/10/17 15:53 01/10/17 15:53 01/10/17 15:53 01/10/17 15:53 01/10/17 15:53 Laboratory Results 01/08/17 05:11 01/10/17 04:15 01/09/17 01/10/17 01/11/17 05:59 05:59 05:59 Intake Total 1172 1608 500 Output Total 800 900 Balance 372 708 500 - Physical Exam Constitutional: no apparent distress Eyes: PERRL Ears, Nose, Mouth, Throat: moist mucous membranes Cardiovascular: regular rate and rhythym Respiratory: no respiratory distress Gastrointestinal: normoactive bowel sounds, soft, non-tender abdomen Skin: warm Musculoskeletal: full muscle strength Neurologic: AAOx3 Psychiatric: interacting appropriately ICD10 Worksheet Patient Problems: Problems Problem Status Onset Acute kidney failure Acute Anemia Acute CHF (congestive heart failure) Acute CHF (congestive heart failure), NYHA class II Acute Hypertension Acute Hypoxemia Acute Renal insufficiency Acute Shortness of breath Acute
[2017-01-10] MEDS: ALLOPURINOL 100 MG TAB PO SCH (21:49)
[2017-01-10] MEDS: ATORVASTATIN CALCIUM 10 MG TAB PO SCH (21:49)
[2017-01-11 07:21] VITALS: BP 130/67; PULSE 72; RESP 18; TEMP 97.5; O2SAT 95
[2017-01-11] MEDS: HYDROmorphONE/DILAUDID 2 MG TAB PO PRN ×2 (07:36→11:23)
[2017-01-11] MEDS ORDERED: FAMOTIDINE 20 MG TAB PO PRN (08:23)
[2017-01-11] MEDS: METOPROLOL TARTRATE 25 MG TAB PO SCH (09:11)
[2017-01-11] MEDS: FUROSEMIDE 20 MG TAB PO SCH (09:11)
[2017-01-11] MEDS: ENOXAPARIN 30 MG/0.3 ML SYR SC SCH (09:20)
--- NOTE | 2017-01-11 09:38 | SOAPPROG ---
SOAP Progress Note Assessment/Plan: Assessment: 76yo F with sigmoid colon cancer s/p ileostomy takedown Pain controlled Tolerating regular diet Passing flatus and having bowel movements May shower Change outer dressing as needed. Dispo: d/c home today. Will f/u with Dr. Ahn/Queta ALONSO 1 week for packing change S: pain controlled. having bowel movements, more solid today. Gas pains overnight improved. Tolerating regular diet, no nausea O: sitting upright in bed, comfortable, NAD No increased WOB, CTAB RRR +BS, soft, nt, nd. Takedown site CDI, packing and dressing changed Objective: Vital Signs Temp Pulse Resp BP Pulse Ox 36.4 C 72 18 130/67 H 95 01/11/17 07:19 01/11/17 07:19 01/11/17 07:19 01/11/17 07:19 01/11/17 07:19 Laboratory Results 01/08/17 05:11 01/10/17 04:15 01/10/17 01/11/17 01/12/17 05:59 05:59 05:59 Intake Total 1608 500 Output Total 900 Balance 708 500 ICD10 Worksheet Patient Problems: Problems Problem Status Onset Acute kidney failure Acute Anemia Acute CHF (congestive heart failure) Acute CHF (congestive heart failure), NYHA class II Acute Hypertension Acute Hypoxemia Acute Renal insufficiency Acute Shortness of breath Acute
--- NOTE | 2017-01-19 03:13 | GDS ---
[f rep st] DISCHARGE SUMMARY ADMITTING DIAGNOSIS: Colon cancer. SECONDARY DIAGNOSES: 1. Hypertension. 2. Congestive heart failure. 3. Type 2 diabetes. 4. Hyperlipidemia. 5. Chronic kidney disease. REASON FOR ADMISSION: The patient is a 76-year-old woman, who previously underwent colectomy with d iverting ileostomy. She presents at this time for takedown of the ileostomy. HOSPITAL COURSE: She was taken to the operating room on 01/07/[address] Alysia Ahn for open ileo stomy takedown. Pathology was negative. She was followed by the hospitalists during her hospital s lydia. By postoperative day #2, her pain was controlled with oral pain medicine. She was advanced to clear liquid diet, and by postoperative day #4, she was tolerating regular diet, ambulating indepen dently, pain controlled with oral pain medication, ready for discharge. CONDITION: She is being discharged home in stable condition, pain controlled, regular diet, ambulat ing independently, with full return of bowel function. DISCHARGE MEDICATIONS: She was instructed to resume home medications. Please see EMR for further d etails. She was prescribed Dilaudid. She was provided a prescription for Dilaudid. DISCHARGE INSTRUCTIONS AND FOLLOWUP: She may shower. She may change the outer dressing as needed. She will avoid heavy lifting, pushing, or pulling for 6 weeks. She will follow up in 1 week for pa cking change. She understands to call with any worsening symptoms, questions, or concerns. /[id number]/MODL
== END 2017-01-11 11:27 | disposition home or self-care (01) | DRG 330 ==
LOC: F3N 05:52 → F3E 11:11
PROVIDERS: ADMIT Surgery; ATTEND Surgery
PROC: 0DBB0ZZ Excision of Ileum, Open Approach (ICD-10-PCS; principal; 2017-01-07 07:30)
DX: Z43.2 Encounter for attention to ileostomy (principal); N17.9 Acute kidney failure, unspecified; I50.32 Chronic diastolic (congestive) heart failure; I27.2 Other secondary pulmonary hypertension; I12.9 Hypertensive chronic kidney disease with stage 1 through stage 4 chronic kidney disease, or unspecified chronic kidney disease; N18.9 Chronic kidney disease, unspecified; G47.33 Obstructive sleep apnea (adult) (pediatric); D50.9 Iron deficiency anemia, unspecified; M10.9 Gout, unspecified; E78.00 Pure hypercholesterolemia, unspecified; Z85.038 Personal history of other malignant neoplasm of large intestine
CPT/HCPCS: J0697; J1170; J1650; J2405; J2704; J3010